=== PATIENT | female | born 1985 | race African-American/Black ===

== ENCOUNTER 2017-12-04 17:21 | Emergency (ER) | payer BC, MEDICAID ==
[~2017-12-04] VITALS: Ht 177.8 cm; Wt 187.2 kg
[~2017-12-04 17:21] MED LIST: AMOXICILLIN500 MG PO; IRON325 M1; METFORMIN500 MG PO; NAPROSYN500 MG PO; PHENERMINE PO; PRENATA8 PO; SEASONALE OR; ZOFRAN4 MG/TAB PO
[2017-12-04 18:42] LABS: HEMATOCRIT 35.4 % (37.0-47.0); HEMOGLOBIN 11.3 g/dl (12.0-16.0); IMMATURE GRANULOCYTES 0.7 % (0.0-1.0); MEAN CELL VOLUME 89.6 fL CALC (80.0-100.0); MEAN CORPUSCULAR HGB 28.6 pG CALC (26.0-32.0); MEAN CORPUSCULAR HGB CONC 31.9 g/L CALC (32.0-36.0); NEUT# 9.2 thou/uL (2.00-7.15); RED BLOOD COUNT 3.95 mill/uL (4.20-5.60); RED CELL DISTRI WIDTH 15.1 % (11.5-15.5)
[2017-12-04 18:55] LABS: ANION GAP 15 (6-22 (CALC)); BUN 9 mg/dL (7-17); BUN/CREATININE RATIO 11 (12-20 (CALC)); CARBON DIOXIDE 20 mmol/l (22-30); CHLORIDE 108 mmol/l (95-108); CREATININE 0.9 mg/dL (0.5-1.0); GFR > 60 ML/MIN (>=60 (CALC)); GFR FOR AFR.AMER. > 60 ML/MIN (>=60 (CALC)); POTASSIUM 4.2 mmol/l (3.5-5.1); SODIUM 138 mmol/l (137-146)
[2017-12-04 19:00] VITALS: BP 151/81
== END 2017-12-04 19:15 | DRG 951 ==
LOC: ED 17:21
PROVIDERS: Family Medicine
DX: Z34.83 Encounter for supervision of other normal pregnancy, third trimester (principal); Z3A.40 40 weeks gestation of pregnancy

== ENCOUNTER 2021-05-16 11:38 | Emergency (ER) | payer OTHER ==
[2021-05-16] MEDS ORDERED: ZPAK PO (13:34)
[2021-05-16] MEDS ORDERED: ZOFRAN4 MG/TAB PO ×2 (13:34→13:35)
[2021-05-16] MEDS ORDERED: VENTOLIN HFA IN ×2 (13:34→13:35)
[2021-05-16 13:43] VITALS: BP 138/76
[2021-07-16] MEDS ORDERED: PHENTERMINE37.5 MG PO (09:19)
== END 2021-05-16 13:50 | disposition home or self-care (01) | DRG 179 ==
LOC: ED 11:38
DX: U07.1 COVID-19 (principal); J40 Bronchitis, not specified as acute or chronic